=== PATIENT | female | born 1945 | race Caucasian/White ===

== ENCOUNTER → 2016-08-02 | Outpatient (CLI) | payer MEDICARE | END | disposition home or self-care (01) | LOC: RAD 10:41 | DX: M81.0 Age-related osteoporosis without current pathological fracture (principal); M85.80 Other specified disorders of bone density and structure, unspecified site; M19.90 Unspecified osteoarthritis, unspecified site; R29.890 Loss of height; Z78.0 Asymptomatic menopausal state ==

== ENCOUNTER → 2017-01-16 | Outpatient (CLI) | payer MEDICARE | END | disposition home or self-care (01) | LOC: MAMMO 10:14 | DX: Z12.31 Encounter for screening mammogram for malignant neoplasm of breast (principal) ==

== ENCOUNTER → 2018-01-21 | Outpatient (CLI) | payer MEDICARE | END | disposition home or self-care (01) | LOC: MAMMO 11-20 07:40 | DX: Z12.31 Encounter for screening mammogram for malignant neoplasm of breast (principal); R92.0 Mammographic microcalcification found on diagnostic imaging of breast ==

== ENCOUNTER → 2018-07-09 | Outpatient (CLI) | payer MEDICARE | END | disposition home or self-care (01) | LOC: RAD 09:25 | DX: J43.9 Emphysema, unspecified (principal); J06.9 Acute upper respiratory infection, unspecified; I10 Essential (primary) hypertension; Z87.891 Personal history of nicotine dependence ==

== ENCOUNTER → 2020-07-05 | Outpatient (CLI) | payer MEDICARE | END | disposition home or self-care (01) | LOC: MAMMO 13:59 | PROVIDERS: ATTEND Family Medicine | DX: Z12.31 Encounter for screening mammogram for malignant neoplasm of breast (principal); N64.89 Other specified disorders of breast ==

== ENCOUNTER → 2021-01-19 | Outpatient (CLI) | payer MEDICARE | END | disposition home or self-care (01) | LOC: COVID19 16:58 | PROVIDERS: ATTEND Podiatrist Foot & Ankle Surgery | DX: Z20.822 Contact with and (suspected) exposure to COVID-19 (principal) ==

== ENCOUNTER → 2022-02-27 | Outpatient (CLI) | payer MEDICARE | END | disposition home or self-care (01) | LOC: MAMMO 00:49 | PROVIDERS: ATTEND Family Medicine | DX: Z12.39 Encounter for other screening for malignant neoplasm of breast (principal); R92.2 Inconclusive mammogram ==

== ENCOUNTER → 2022-04-08 | Outpatient (CLI) | payer MEDICARE | END | disposition home or self-care (01) | LOC: US 02:10 | PROVIDERS: ATTEND Family Medicine | DX: I70.202 Unspecified atherosclerosis of native arteries of extremities, left leg (principal); M71.22 Synovial cyst of popliteal space [Baker], left knee; I10 Essential (primary) hypertension; R20.2 Paresthesia of skin; F17.200 Nicotine dependence, unspecified, uncomplicated; M79.605 Pain in left leg; R60.9 Edema, unspecified ==

== ENCOUNTER → 2023-05-19 | Outpatient (CLI) | payer MEDICARE | END | disposition home or self-care (01) | LOC: RAD 05-09 09:30 → MAMMO 03:53 | PROVIDERS: ATTEND Family Medicine | DX: Z12.31 Encounter for screening mammogram for malignant neoplasm of breast (principal); M85.852 Other specified disorders of bone density and structure, left thigh; Z78.0 Asymptomatic menopausal state ==

== ENCOUNTER 2023-06-26 15:31 | Inpatient (IN) | payer MEDICARE ==
[~2023-06-26] VITALS: Ht 165.1 cm; Wt 73.7 kg
[2023-06-26 15:53] VITALS: BP 126/61
[2023-06-26 16:20] LABS: HEMATOCRIT 38.7 % (37.0-47.0); MEAN CELL VOLUME 93.5 fl (81.0-99.0); MEAN CORPUSCULAR HGB 29.5 pg (27.0-31.0); MEAN CORPUSCULAR HGB CONC 31.5 g/dl (33.0-37.0); MEAN PLATELET VOLUME 9.6 fl (9.6-12.3); PLATELET COUNT AUTOMATED 364 10*3/uL (130-400); RED BLOOD COUNT 4.14 10*6/uL (4.10-5.10); RED CELL DISTRI WIDTH 13.2 % (0-14.5); WHITE BLOOD COUNT 17.7 10*3/uL (4.8-10.8)
[2023-06-26 16:25] LABS: MANUAL DIFF REFLEX YES
[2023-06-26 16:35] LABS: ACT PARTIAL THROMBO TIME 31.7 SECONDS (20.0-32.1)
[2023-06-26 16:41] LABS: PLATELET SUFFICIENCY NORMAL (NORMAL); TOTAL CELLS COUNTED 100 #CELLS
[2023-06-26 16:42] LABS: ALKALINE PHOSPHATASE 84 U/L (46-116); BUN 12 mg/dl (9-23); BURR CELLS FEW; CHLORIDE 99 mmol/L (98-107); LIPASE 26 U/L (12-53); POTASSIUM 3.8 mmol/L (3.4-5.1); SGPT/ALT 21 U/L (5-49); TOTAL PROTEIN 7.4 gm/dL (6.0-8.0)
[2023-06-26 16:43] LABS: OVALOCYTES FEW; POLYCHROMASIA SLIGHT; TOXIC GRANULATION SLIGHT
[2023-06-26] MEDS ORDERED: AZITHROMYCIN 250 ML IV ONE (16:45)
[2023-06-26] MEDS ORDERED: Albuterol Sulf/Ipratropium 3 ML VIAL NEB ONE (16:45)
[2023-06-26] MEDS ORDERED: methylPREDNISolone sod succ 125 MG VIAL IV ONE (16:45)
[2023-06-26] MEDS ORDERED: Ceftriaxone Sodium 1 GM/10 ML SYR IV ONE (16:45)
[2023-06-26] MEDS ORDERED: ACETAMINOPHEN 325 MG TAB PO PRN (18:35)
[2023-06-26] MEDS ORDERED: ACETAMINOPHEN 650 MG SUPP R PRN (18:35)
[2023-06-26] MEDS ORDERED: BISACODYL 10 MG SUPP R PRN (18:35)
[2023-06-26] MEDS ORDERED: Magnesium Hydroxide 30 ML UDC PO PRN (18:35)
[2023-06-26] MEDS ORDERED: BISACODYL 5 MG TAB PO PRN (18:35)
[2023-06-26] MEDS ORDERED: Ondansetron Hydrochloride 4 MG/2 ML VIAL IV PRN (18:35)
[2023-06-26] MEDS ORDERED: Acetaminophen/Hydrocodone 5 MG/325 MG TABLET PO PRN (18:35)
[2023-06-26] MEDS ORDERED: TEMAZEPAM 15 MG CAP PO PRN (18:35)
[2023-06-26] MEDS ORDERED: COZAAR50 M1 PO (19:12)
[2023-06-26] MEDS ORDERED: BREO ELLIPTA 11 EACH INH (19:21)
[2023-06-26] MEDS ORDERED: PROVENTIL HFA6.7 GM INH (19:23)
[2023-06-26 19:26] VITALS: BP 113/53
[2023-06-26 20:00] VITALS: BP 113/53
[2023-06-26] MEDS ORDERED: Albuterol Sulf/Ipratropium 3 ML VIAL NEB SCH (21:30)
[2023-06-26] MEDS ORDERED: GUAIFENESIN 600 MG TAB ER PO SCH (22:00)
[2023-06-27 05:45] LABS: BUN 15 mg/dl (9-23); CHLORIDE 103 mmol/L (98-107); POTASSIUM 4.1 mmol/L (3.4-5.1)
[2023-06-27 05:57] LABS: HEMATOCRIT 37.9 % (37.0-47.0); MEAN CORPUSCULAR HGB 29.5 pg (27.0-31.0); MEAN CORPUSCULAR HGB CONC 31.4 g/dl (33.0-37.0); MEAN PLATELET VOLUME 10.1 fl (9.6-12.3); PLATELET COUNT AUTOMATED 379 10*3/uL (130-400); RED BLOOD COUNT 4.03 10*6/uL (4.10-5.10); RED CELL DISTRI WIDTH 13.2 % (0-14.5); WHITE BLOOD COUNT 13.8 10*3/uL (4.8-10.8)
[2023-06-27] MEDS ORDERED: Pantoprazole Sodium 40 MG TAB PO SCH (06:00)
[2023-06-27 06:04] VITALS: BP 124/63
[2023-06-27 06:07] LABS: MANUAL DIFF REFLEX YES
[2023-06-27 07:24] LABS: PLATELET SUFFICIENCY NORMAL (NORMAL); TOTAL CELLS COUNTED 100 #CELLS
[2023-06-27 09:18] VITALS: BP 120/55
[2023-06-27] MEDS ORDERED: methylPREDNISolone sod succ 40 MG VIAL IV SCH (10:00)
[2023-06-27] MEDS ORDERED: Enoxaparin Sodium 40 MG/0.4 ML SYR SC SCH (10:00)
[2023-06-27 12:01] VITALS: BP 136/46
[2023-06-27] MEDS ORDERED: AZITHROMYCIN 250 ML IV SCH (15:00)
[2023-06-27] MEDS ORDERED: Ceftriaxone Sodium 1 GM in SYRINGE INFUSION 10 ML IV SCH (16:00)
[2023-06-27 17:25] VITALS: BP 119/57; BP 119/59
[2023-06-27 20:00] VITALS: BP 138/71
[2023-06-28] VITALS: BP 117/68
[2023-06-28 04:22] LABS: HEMATOCRIT 35.1 % (37.0-47.0); MEAN CELL VOLUME 94.1 fl (81.0-99.0); MEAN CORPUSCULAR HGB 30.6 pg (27.0-31.0); MEAN CORPUSCULAR HGB CONC 32.5 g/dl (33.0-37.0); MEAN PLATELET VOLUME 9.7 fl (9.6-12.3); PLATELET COUNT AUTOMATED 426 10*3/uL (130-400); RED BLOOD COUNT 3.73 10*6/uL (4.10-5.10); RED CELL DISTRI WIDTH 13.2 % (0-14.5); WHITE BLOOD COUNT 19.5 10*3/uL (4.8-10.8)
[2023-06-28 04:26] LABS: MANUAL DIFF REFLEX YES
[2023-06-28 05:06] LABS: PLATELET SUFFICIENCY HIGH (NORMAL); TOTAL CELLS COUNTED 100 #CELLS
[2023-06-28 08:00] VITALS: BP 116/55
[2023-06-28] MEDS ORDERED: Losartan Potassium 50 MG TAB PO SCH (10:00)
[2023-06-28 12:00] VITALS: BP 148/58
[2023-06-28 16:00] VITALS: BP 129/67
[2023-06-28 20:00] VITALS: BP 121/53
[2023-06-29] VITALS: BP 124/59
[2023-06-29 05:12] LABS: BUN 15 mg/dl (9-23); CHLORIDE 105 mmol/L (98-107); POTASSIUM 4.6 mmol/L (3.4-5.1)
[2023-06-29 06:35] LABS: MEAN CELL VOLUME 93.3 fl (81.0-99.0); MEAN CORPUSCULAR HGB 29.8 pg (27.0-31.0); MEAN CORPUSCULAR HGB CONC 31.9 g/dl (33.0-37.0); MEAN PLATELET VOLUME 9.7 fl (9.6-12.3); PLATELET COUNT AUTOMATED 467 10*3/uL (130-400); RED BLOOD COUNT 3.86 10*6/uL (4.10-5.10); RED CELL DISTRI WIDTH 13.5 % (0-14.5); WHITE BLOOD COUNT 15.2 10*3/uL (4.8-10.8)
[2023-06-29 06:38] LABS: MANUAL DIFF REFLEX YES
[2023-06-29 07:51] LABS: PLATELET SUFFICIENCY HIGH (NORMAL); TOTAL CELLS COUNTED 100 #CELLS
[2023-06-29 08:00] VITALS: BP 132/69
[2023-06-29 12:00] VITALS: BP 152/80
[2023-06-29] MEDS ORDERED: AVPAK AZITHROM250 MG PO (13:18)
== END 2023-06-29 14:26 | disposition home or self-care (01) | DRG 871 ==
LOC: ED 15:31 → EDHOLD 17:27 → 5E 06-27 14:50
PROVIDERS: Emergency Medicine; Student in an Organized Health Care Education/Training Program; ADMIT Internal Medicine; ATTEND Internal Medicine
DX: A41.9 Sepsis, unspecified organism (principal); J18.9 Pneumonia, unspecified organism; J96.01 Acute respiratory failure with hypoxia; J44.1 Chronic obstructive pulmonary disease with (acute) exacerbation; J44.0 Chronic obstructive pulmonary disease with (acute) lower respiratory infection; E87.1 Hypo-osmolality and hyponatremia; E44.0 Moderate protein-calorie malnutrition; I10 Essential (primary) hypertension; Z66 Do not resuscitate; F17.210 Nicotine dependence, cigarettes, uncomplicated; Z90.710 Acquired absence of both cervix and uterus; Z82.49 Family history of ischemic heart disease and other diseases of the circulatory system; Z71.6 Tobacco abuse counseling; Z83.3 Family history of diabetes mellitus; Z68.27 Body mass index [BMI] 27.0-27.9, adult

== ENCOUNTER 2023-11-14 18:09 | Inpatient (IN) | payer MEDICARE ==
[~2023-11-14] VITALS: Ht 165.1 cm; Wt 78.7 kg
[~2023-11-14 18:09] MED LIST: AVPAK AZITHROM250 MG PO; BREO ELLIPTA 11 EACH INH; COZAAR50 M1 PO; PROVENTIL HFA6.7 GM INH
[2023-11-14 18:19] VITALS: BP 164/91
[2023-11-14 18:50] LABS: BASO % 0.1 % (0.0-1.0); EOS # 0.2 10*3/uL (0.0-0.4); EOS % 1.4 % (1.0-4.0); HEMATOCRIT 35.8 % (37.0-47.0); LYMPH # 0.5 10*3/uL (1.3-4.4); LYMPH % 3.9 % (27.0-41.0); MEAN CELL VOLUME 89.9 fl (81.0-99.0); MEAN CORPUSCULAR HGB 29.4 pg (27.0-31.0); MEAN CORPUSCULAR HGB CONC 32.7 g/dl (33.0-37.0); MEAN PLATELET VOLUME 9.2 fl (9.6-12.3); MONO # 0.8 10*3/uL (0.1-1.0); MONO % 6.1 % (3.0-9.0); NEUT # 10.9 10*3/uL (2.3-7.9); PLATELET COUNT AUTOMATED 361 10*3/uL (130-400); RED BLOOD COUNT 3.98 10*6/uL (4.10-5.10); RED CELL DISTRI WIDTH 12.4 % (0-14.5); WHITE BLOOD COUNT 12.3 10*3/uL (4.8-10.8)
[2023-11-14] MEDS ORDERED: methylPREDNISolone sod succ 125 MG VIAL IV ONE (19:10)
[2023-11-14] MEDS ORDERED: AZITHROMYCIN 250 MG TAB PO ONE (19:10)
[2023-11-14] MEDS ORDERED: SODIUM CHLORIDE 0.9% 1,000 ML IV ONE (19:10)
[2023-11-14] MEDS ORDERED: ACETAMINOPHEN 325 MG TAB PO ONE (19:15)
[2023-11-14 19:16] LABS: BUN 10 mg/dl (9-23); CHLORIDE 104 mmol/L (98-107); POTASSIUM 3.8 mmol/L (3.4-5.1)
[2023-11-14 19:43] VITALS: BP 136/53
[2023-11-14] MEDS ORDERED: ACETAMINOPHEN 325 MG TAB PO PRN (20:20)
[2023-11-14] MEDS ORDERED: Ondansetron Hydrochloride 4 MG/2 ML VIAL IV PRN (20:20)
[2023-11-14 20:55] VITALS: BP 99/56
[2023-11-14 22:05] VITALS: BP 109/40
[2023-11-15] VITALS (9 sets, daily range): BP systolic 92–126; BP diastolic 54–71
[2023-11-15] MEDS ORDERED: Albuterol Sulf/Ipratropium 3 ML VIAL NEB SCH (02:35)
[2023-11-15] MEDS ORDERED: Ceftriaxone Sodium 1 GM in SYRINGE INFUSION 10 ML IV SCH (03:00)
[2023-11-15] MEDS ORDERED: Ceftriaxone Sodium 1 GM/10 ML SYR IV ONE (03:05)
[2023-11-15 04:00] LABS: HEMATOCRIT 36.5 % (37.0-47.0); MEAN CELL VOLUME 89.5 fl (81.0-99.0); MEAN CORPUSCULAR HGB 29.7 pg (27.0-31.0); MEAN CORPUSCULAR HGB CONC 33.2 g/dl (33.0-37.0); PLATELET COUNT AUTOMATED 346 10*3/uL (130-400); RED BLOOD COUNT 4.08 10*6/uL (4.10-5.10); RED CELL DISTRI WIDTH 12.5 % (0-14.5); WHITE BLOOD COUNT 13.8 10*3/uL (4.8-10.8)
[2023-11-15 04:04] LABS: MANUAL DIFF REFLEX YES
[2023-11-15 04:28] LABS: BASOPHILS 1 % (0-1); PLATELET SUFFICIENCY NORMAL (NORMAL); TOTAL CELLS COUNTED 100 #CELLS
[2023-11-15 04:29] LABS: ALKALINE PHOSPHATASE 63 U/L (46-116); BUN 12 mg/dl (9-23); BURR CELLS FEW; CHLORIDE 104 mmol/L (98-107); POTASSIUM 4.2 mmol/L (3.4-5.1); SGPT/ALT 10 U/L (5-49); TOTAL PROTEIN 6.9 gm/dL (6.0-8.0)
[2023-11-15 04:30] LABS: POLYCHROMASIA SLIGHT
[2023-11-15] MEDS ORDERED: GUAIFENESIN 600 MG TAB ER PO SCH (10:00)
[2023-11-15] MEDS ORDERED: Enoxaparin Sodium 40 MG/0.4 ML SYR SC SCH (10:00)
[2023-11-15] MEDS ORDERED: methylPREDNISolone sod succ 40 MG VIAL IV SCH (10:00)
[2023-11-15] MEDS ORDERED: Losartan Potassium 50 MG TAB PO SCH (10:00)
[2023-11-15] MEDS ORDERED: AZITHROMYCIN 250 ML IV SCH (18:00)
[2023-11-15] MEDS ORDERED: CALCIUM500 M1 PO (23:12)
[2023-11-15] MEDS ORDERED: B COMPLEX1 EACH PO (23:13)
[2023-11-15] MEDS ORDERED: VITAMIN D350 MC2 PO (23:14)
[2023-11-16] VITALS: BP 109/53
[2023-11-16] MEDS ORDERED: Ceftriaxone Sodium 1 GM in SYRINGE INFUSION 10 ML IV SCH
[2023-11-16] MEDS ORDERED: ASPIRIN ADULT L81 M1 PO (03:01)
[2023-11-16 07:05] LABS: ALKALINE PHOSPHATASE 53 U/L (46-116); BUN 12 mg/dl (9-23); CHLORIDE 108 mmol/L (98-107); POTASSIUM 4.2 mmol/L (3.4-5.1); SGPT/ALT 10 U/L (5-49); TOTAL PROTEIN 6.5 gm/dL (6.0-8.0)
[2023-11-16 08:00] VITALS: BP 127/71
[2023-11-16] MEDS ORDERED: OMNICEF300 MG PO ×2 (11:17→12:36)
[2023-11-16] MEDS ORDERED: NEBULIZER ×2 (11:17→12:36)
[2023-11-16] MEDS ORDERED: MUCINEX1200 M1 PO ×2 (11:17→12:36)
[2023-11-16] MEDS ORDERED: Ipratropium Brom3 ML INH ×2 (11:17→12:36)
[2023-11-16] MEDS ORDERED: ZITHROMAX250 MG PO ×2 (11:17→12:36)
== END 2023-11-16 11:55 | disposition home or self-care (01) | DRG 871 ==
LOC: ED 18:09 → EDHOLD 20:02 → 4E 11-15 18:51
PROVIDERS: Nurse Practitioner Family; Student in an Organized Health Care Education/Training Program; ADMIT Internal Medicine; ATTEND Internal Medicine
DX: A41.9 Sepsis, unspecified organism (principal); J15.69 Pneumonia due to other Gram-negative bacteria; J96.01 Acute respiratory failure with hypoxia; J44.1 Chronic obstructive pulmonary disease with (acute) exacerbation; E87.1 Hypo-osmolality and hyponatremia; E44.0 Moderate protein-calorie malnutrition; J44.0 Chronic obstructive pulmonary disease with (acute) lower respiratory infection; R65.20 Severe sepsis without septic shock; I10 Essential (primary) hypertension; R73.9 Hyperglycemia, unspecified; D64.9 Anemia, unspecified; J43.1 Panlobular emphysema; J45.40 Moderate persistent asthma, uncomplicated; N39.41 Urge incontinence; Z68.28 Body mass index [BMI] 28.0-28.9, adult; Z90.710 Acquired absence of both cervix and uterus; Z87.891 Personal history of nicotine dependence

== ENCOUNTER → 2025-01-19 | Outpatient (CLI) | payer MEDICARE ==
[~2025-01-19] MED LIST changes: +ASPIRIN ADULT L81 M1 PO; +B COMPLEX1 EACH PO; +CALCIUM500 M1 PO; +Ipratropium Brom3 ML INH; +MUCINEX1200 M1 PO; +NEBULIZER; +OMNICEF300 MG PO; +VITAMIN D350 MC2 PO; +ZITHROMAX250 MG PO
== END | disposition home or self-care (01) ==
LOC: MAMMO 00:11
PROVIDERS: ATTEND Family Medicine
DX: Z12.31 Encounter for screening mammogram for malignant neoplasm of breast (principal); R92.323 Mammographic fibroglandular density, bilateral breasts